=== PATIENT | male | born 1985 | race Two or more races ===

== ENCOUNTER 2022-09-23 16:24 | Inpatient (IN) | payer BC, SELFPAY ==
[2022-09-23 18:32] VITALS: BMI 32.8
[2022-09-23 18:41] LABS: #Eosinphils 0.1 thou/uL (0.0-0.7); #Lymphocytes 1.7 thou/uL (1.20-3.40); #Monocytes 1.2 thou/uL (0.11-0.59); #Neutrophils 9.7 thou/uL (1.40-6.50); %Basophils 0.1 % (0.0-1.0); %Eosinophils 0.5 % (0.0-10.0); %Lymphocytes 13.6 % (21.0-51.0); %Monocytes 9.7 % (0.0-10.0); %Neutrophils 76.1 % (42.0-75.0); Hemoglobin 14.6 g/dL (14.0-18.0); Mean Corpuscular HGB CONC 33.2 g/dL (32.0-36.0); Mean Corpuscular Hemoglobin 32.3 pg (27.0-31.0); Mean Corpuscular Volume 97.4 fl (78.0-98.0); Mean Platelet Volume 8.2 fL (7.4-10.4); Platelet Count 226 10x3/uL (130-400); RBC Distribution Width 11.9 % (11.5-14.5); Red Blood Cell (RBC) Count 4.51 mill/uL (4.70-6.10); White Blood Cell (WBC) Count 12.8 10x3/uL (4.8-10.8)
[2022-09-23] MEDS ORDERED: Ondansetron PF 4 MG/2 ML Vial IVP PRN (18:52)
[2022-09-23] MEDS ORDERED: Morphine 4 MG/ML VIAL SLOW IVP PRN (18:54)
[2022-09-23 19:00] LABS: Anion Gap 13 mmol/L (10-20); BUN (Urea Nitrogen) 12 mg/dL (8.9-20.6); Calc. Creatinine Clearance 139 mL/min (70-130); Calcium 8.7 mg/dL (7.8-10.44); Carbon Dioxide 24 mmol/L (22-29); Chloride 103 mmol/L (98-107); Estimated GFR 101; Glucose 92 mg/dL (70-105); Potassium 3.9 mmol/L (3.5-5.1); Sodium 136 mmol/L (136-145)
[2022-09-23] MEDS: Sodium Chloride 0.9% 1,000 ML IV SCH (20:33)
[2022-09-23] MEDS: Acetaminophen 500 MG TAB PO PRN (20:42)
[2022-09-24] MEDS: Sodium Chloride 0.9% 1,000 ML IV SCH ×2 (08:11→15:49)
[2022-09-24] MEDS: Acetaminophen 500 MG TAB PO PRN (08:11)
[2022-09-24] MEDS ORDERED: FLU VACC QS2022-23(6MOS UP)/PF 60 MCG/0.5 ML SYRINGE IM ONE (09:00)
[2022-09-24] MEDS ORDERED: Midazolam HCl 2 mg/2 ml Vial ONE (09:45)
[2022-09-24] MEDS ORDERED: Fentanyl 250 MCG/5 ML VIAL ONE (09:45)
[2022-09-24] MEDS ORDERED: Neomycin-Polymyxin 1 ML AMP ONE (09:52)
[2022-09-24] MEDS ORDERED: Ondansetron PF 4 MG/2 ML Vial ONE (10:38)
[2022-09-24] MEDS ORDERED: PROPOFOL 200 MG/20 ML VIAL ONE (10:38)
[2022-09-24] MEDS ORDERED: Lidocaine 1% PF 5 ML VIAL ONE (10:38)
[2022-09-24] MEDS ORDERED: Dexamethasone 20 MG/5 ML VIAL ONE (10:38)
[2022-09-24] MEDS ORDERED: Ondansetron HCl/PF 4 MG/2 ML Vial IVP PRN (10:50)
[2022-09-24] MEDS ORDERED: Promethazine HCl 25 MG/ML VIAL IVPB PRN (10:50)
[2022-09-24] MEDS ORDERED: Promethazine HCl 25 MG/ML VIAL IM PRN (10:50)
[2022-09-24] MEDS ORDERED: HYDROmorphone 2 MG/ML VIAL SLOW IVP PRN (10:50)
[2022-09-24] MEDS ORDERED: Piperacillin/Tazobactam 3.375 GM in Sodium Chloride 0.9% 100 ML IVPB SCH ×2 (11:15→12:00)
[2022-09-24] MEDS ORDERED: Sodium Chloride 0.9% 100 ML ONE ×2 (11:18→11:41)
[2022-09-24] MEDS ORDERED: CEFAZOLIN 2 GM VIAL ONE (11:18)
[2022-09-24] MEDS ORDERED: PHENYLEPHRINE-NS 100 MCG/ML 10 ML SYRINGE ONE (11:21)
[2022-09-24] MEDS ORDERED: Piperacillin/Tazobactam 3.375 GM VIAL ONE (11:41)
[2022-09-24] MEDS: Vancomycin 1.5 GRAM/300 ML BAG 1.5 GM in Premix Bag 1 BAG IVPB SCH ×2 (12:50→21:07)
[2022-09-24] MEDS: Piperacillin/Tazobactam 3.375 GM in Sodium Chloride 0.9% 100 ML IVPB SCH ×2 (15:45→23:33)
[2022-09-24] MEDS ORDERED: VANCOMYCIN 2 GRAM/500 ML BAG 2 GM in Premix Bag 1 BAG IVPB SCH (21:00)
[2022-09-25] MEDS: Sodium Chloride 0.9% 1,000 ML IV SCH ×3 (01:34→16:27)
[2022-09-25] MEDS: Vancomycin 1.5 GRAM/300 ML BAG 1.5 GM in Premix Bag 1 BAG IVPB SCH ×3 (04:31→21:16)
[2022-09-25 05:36] LABS: #Lymphocytes 1.3 thou/uL (1.20-3.40); #Neutrophils 10.1 thou/uL (1.40-6.50); %Eosinophils 0.3 % (0.0-10.0); %Lymphocytes 10.8 % (21.0-51.0); %Monocytes 7.9 % (0.0-10.0); Hemoglobin 14.5 g/dL (14.0-18.0); Mean Corpuscular Hemoglobin 33.2 pg (27.0-31.0); Mean Corpuscular Volume 97.4 fl (78.0-98.0); Mean Platelet Volume 8.2 fL (7.4-10.4); Platelet Count 264 10x3/uL (130-400); RBC Distribution Width 11.8 % (11.5-14.5); Red Blood Cell (RBC) Count 4.37 mill/uL (4.70-6.10); White Blood Cell (WBC) Count 12.5 10x3/uL (4.8-10.8)
[2022-09-25] MEDS: Piperacillin/Tazobactam 3.375 GM in Sodium Chloride 0.9% 100 ML IVPB SCH ×2 (08:15→17:09)
[2022-09-25] MEDS: Morphine 4 MG/ML VIAL SLOW IVP PRN (09:41)
[2022-09-25 11:37] LABS: Vancomycin, Trough 16.2 ug/mL
[2022-09-26] MEDS: Piperacillin/Tazobactam 3.375 GM in Sodium Chloride 0.9% 100 ML IVPB SCH ×2 (00:17→09:16)
[2022-09-26] MEDS: Sodium Chloride 0.9% 1,000 ML IV SCH ×2 (00:17→09:16)
[2022-09-26] MEDS: Vancomycin 1.5 GRAM/300 ML BAG 1.5 GM in Premix Bag 1 BAG IVPB SCH (04:38)
[2022-09-26] MEDS: Morphine 4 MG/ML VIAL SLOW IVP PRN (10:08)
[2022-09-26 11:22] LABS: Vancomycin, Trough 21.1 ug/mL
[2022-09-26 11:30] VITALS: BP 112/72; TEMP 98.8
[2022-09-26] MEDS ORDERED: Vancomycin HCl 1.25 GM in Sodium Chloride 0.9% 250 ML 250 ML IVPB SCH (12:00)
[2022-09-26] MEDS ORDERED: Sulfameth/Trimethoprim DS 800-160mg TAB PO SCH (21:00)
== END 2022-09-26 12:00 | disposition home or self-care (01) | DRG 465 ==
LOC: SURG A 17:52 → OBSVTOIN 09-24 16:21
PROVIDERS: ADMIT Orthopaedic Surgery; ATTEND Orthopaedic Surgery
PROC: 0JBM0ZZ Excision of Left Upper Leg Subcutaneous Tissue and Fascia, Open Approach (ICD-10-PCS; principal; 2022-09-24)
DX: M60.052 Infective myositis, left thigh (principal); Z20.822 Contact with and (suspected) exposure to COVID-19; Z28.21 Immunization not carried out because of patient refusal
CPT/HCPCS: 36415; 80048; 80202; 85025; 87070; 87077; 87186; 87205; 97139; J1100; J2250; J2270; J2405; J2543; J2704; J3010; J3370; J3490; J7050; U0003; U0005